=== PATIENT | male | born 1955 | race Hispanic/Latino ===

== ENCOUNTER 2021-09-15 12:30 | Day surgery (SDC) | payer OTHER ==
[~2021-09-15 12:30] MED LIST: ATENOLOL50 MG PO; GLIPIZIDE ER5 MG PO; LIPITOR10 MG PO; OMEGA 3 1,0001 EACH PO; QUINAPRIL HCL20 MG PO; SYNJARDY XR 5-1 EACH PO
[2021-09-15] MEDS ORDERED: MIDAZOLAM HCL 2 MG/2 ML VIAL ONE (12:49)
[2021-09-15] MEDS ORDERED: FENTANYL CITRATE/PF 100MCG/2 ML INJ ONE (12:49)
[2021-09-15] MEDS ORDERED: LIDOCAINE HCL 2% LOCAL INJ 5 ML SDV VIAL INJ ONE (16:12)
[2021-09-15] MEDS ORDERED: HYOSCYAMINE SULFATE 0.5 MG/ML INJ ONE (16:12)
[2021-09-15] MEDS ORDERED: PROPOFOL IV EMULSION 10 MG/ML 20 ML VIAL ONE (16:12)
[2021-09-15 16:16] VITALS: BP 119/82
== END 2021-09-15 16:30 | disposition home or self-care (01) ==
LOC: OR 12:30 → EDSTATUS 14:30 → OR 16:30
PROVIDERS: ATTEND Internal Medicine Gastroenterology
DX: K59.09 Other constipation (principal); K63.3 Ulcer of intestine; K64.8 Other hemorrhoids; Z71.3 Dietary counseling and surveillance; C22.0 Liver cell carcinoma; D64.9 Anemia, unspecified; C85.90 Non-Hodgkin lymphoma, unspecified, unspecified site; E11.9 Type 2 diabetes mellitus without complications; I10 Essential (primary) hypertension; E78.5 Hyperlipidemia, unspecified; Z79.84 Long term (current) use of oral hypoglycemic drugs; Z79.899 Other long term (current) drug therapy; Z68.26 Body mass index [BMI] 26.0-26.9, adult
CPT/HCPCS: 36415; 45380; 82948; J1980; J2001; J2250; J2704; J3010; 45378